=== PATIENT | male | born 1995 | race Caucasian/White ===

== ENCOUNTER 2022-07-21 21:53 | Emergency (ER) | payer OTHER ==
[2022-07-21 22:12] VITALS: BP 176/101; PULSE 93; RESP 20; TEMP 98.2; BMI 46.0
== END 2022-07-21 23:53 | disposition home or self-care (01) ==
LOC: JER 21:53
PROC: 2W3RX1Z Immobilization of Left Lower Leg using Splint (ICD-10-PCS; principal; 2022-07-21)
DX: S93.402A Sprain of unspecified ligament of left ankle, initial encounter (principal); M25.572 Pain in left ankle and joints of left foot; M25.472 Effusion, left ankle; W18.49XA Other slipping, tripping and stumbling without falling, initial encounter; Y93.67 Activity, basketball; Y92.310 Basketball court as the place of occurrence of the external cause
CPT/HCPCS: 29515; 73610-TC-LT-FY; 73630-TC-LT; 99283-25